=== PATIENT | male | born 1975 ===

== ENCOUNTER 2017-12-04 17:59 | Emergency (ER) | payer BC ==
[2017-12-04 18:08] VITALS: BP 136/91
[2017-12-04] MEDS ORDERED: Tetan/Diph/Pertus SYR(Tdap)* 0.5 ML SYR(BOOSTRIX) use SYR IM ONE (18:10)
--- NOTE | 2017-12-04 18:11 | UC ---
Laceration HPI - HPI Summary HPI Summary: 42 yo male presents with laceration to left index finger. He tells me that about 20min [employer] he was slicing an orange when the knife slipped and he sliced his left index finger. He bandaged the area and came directly to . Unsure date of last tetanus - History Of Current Complaint Chief Complaint: UCLaceration Stated Complaint: FINGER LAC Time Seen by Provider: 12/04/17 18:10 Hx Obtained From: Patient Laceration Location: Finger Mechanism Of Injury: Sharp Trauma Onset/Duration: Sudden Onset Severity: Moderate Pain Intensity: 5 Pain Scale Used: 0-10 Numeric - Allergies/Home Medications Allergies/Adverse Reactions: Allergies Allergy/AdvReac Type Severity Reaction Status Date / Time No Known Allergies Allergy Verified 12/04/17 18:08 Home Medications: Home Medications NK [No Home Medications Reported] 12/04/17 [History Confirmed 12/04/17] PMH/Surg Hx/FS Hx/Imm Hx - Additional Past Medical History Additional PMH: none - Surgical History Surgical History: None Surgery Procedure, Year, and Place: vasectomy 2018. wisdom teeth removed. appy 1981 - Family History Known Family History: Positive: None - Social History Occupation: Employed Full-time Lives: With Family Alcohol Use: None Substance Use Type: None Smoking Status (MU): Never Smoked Tobacco Review of Systems Constitutional: Negative Skin: Other - Laceration left finger Respiratory: Negative Cardiovascular: Negative Musculoskeletal: Negative Neurological: Negative Psychological: Negative All Other Systems Reviewed And Are Negative: Yes Physical Exam - Summary Physical Exam Summary: GENERAL: NAD. WDWN. No pain distress. SKIN: LEFT INDEX FINGER: Distal tip with 5mm linear laceration distal to the nail. Skin is well approximated with mild bleeding. No subcutaneous tissue exposed. NECK: Supple. Nontender. No lymphadenopathy. CHEST: No accessory muscle use. Breathing comfortably and in no distress. CV: Pulses intact. Cap refill <2seconds NEURO: Alert. PSYCH: Age appropriate behavior. Triage Information Reviewed: Yes Vital Signs: Initial Vital Signs Temp 98.2 F 12/04/17 18:04 Pulse 92 12/04/17 18:04 Resp 15 12/04/17 18:04 BP 136/91 12/04/17 18:04 Pulse Ox 99 12/04/17 18:04 Vital Signs Reviewed: Yes Laceration Repair - Laceration Repair 1 Description: Linear Laceration Size After Repair: Length (cm) - 0.5 Modified For Repair: No Cleansing Completed Via Routine Prep: Yes Closure Material: Skin Adhesive Closure Method: Single Layer Laceration Course/Dx - Course/Dx Course Of Treatment: Wound was cleansed with 250mL NS. tdap updated. The wound was closed with dermabond and tubegauze applied. Pt tolerated well. - Differential Dx - Laceration/Wound Provider Diagnoses: Left index finger laceration Discharge - Sign-Out/Discharge Documenting (check all that apply): Patient Departure All imaging exams completed and their final reports reviewed: No Studies - Discharge Plan Condition: Stable Disposition: HOME Patient Education Materials: Laceration (ED), Skin Adhesive Care (ED) Referrals: No Primary Care Phys,NOPCP [Primary Care Provider] - Additional Instructions: If you develop a fever, shortness of breath, chest pain, new or worsening symptoms - please call your PCP or go to the ED. Your blood pressure was mildly elevated at todays visit. Please see your primary provider within 4 weeks for recheck and re-evaluation. 1) Please keep the dressing clean, dry, and intact for the next 24 hours and then change the dressing daily. - Billing Disposition and Condition Condition: STABLE Disposition: Home
== END 2017-12-04 18:45 | disposition home or self-care (01) ==
LOC: UCEAST 17:59
DX: S61.211A Laceration without foreign body of left index finger without damage to nail, initial encounter (principal); W26.0XXA Contact with knife, initial encounter; Y93.G1 Activity, food preparation and clean up; Y92.9 Unspecified place or not applicable; Z23 Encounter for immunization
CPT/HCPCS: 12001; 90715; 99211; 99212; G0463